=== PATIENT | male | born 1965 | race Caucasian/White ===

== ENCOUNTER 2020-03-03 11:26 | Emergency (ER) | payer OTHER ==
--- OUTSIDE RECORDS SUMMARY | 2020-03-03 11:28 | XMS REPORT | Continuity of Care Document ---
:1965 Author Organization [facility] t Address [address] [place] [address] Care Team Providers Name Role Phone ATTAR Attending Clinician Unavailable Problems This patient has no known problems. Allergies, Adverse Reactions, Alerts This patient has no known allergies or adverse reactions. Social History Social Habit Start Date Stop Date Quantity Comments Source Sex Assigned At [place] [facility] Medications This patient has no known medications. Procedures This patient has no known procedures. Plan of Care Planned Activity Planned Date Details Comments Source Future Scheduled 2020-04-05 INFLUENZA VACCINE [place] [facility] 00:00:00 [code = INFLUENZA VACCINE] Future Scheduled 2014 COLONOSCOPY SCREENING [place] [facility] 00:00:00 [code = COLONOSCOPY SCREENING] Future Scheduled 2014 SHINGLES VACCINES [place] [facility] 00:00:00 (#1) [code = SHINGLES VACCINES (#1)] Encounters Start End Encounter Admission Attending Care Care Encounter Source Date/Time Date/Time Type Type Clinicians Facility Department ID 2019-12-28 2019-12-28 Outpatient ATTAR, [facility] [id number] [address] 00:00:00 00:00:00 [id number] Results This patient has no known results.
--- OUTSIDE RECORDS SUMMARY | 2020-03-03 11:28 | XMS REPORT | Clinical Summary ---
:1965 Author Organization [facility] Address [address] [place] [address] Care Team Providers Name Role Phone Unavailable Primary Care Provider Unavailable Allergies Not on File Medications Not on file Active Problems Not on file Encounters Date Type Specialty Care Team Description 12/28/2019 Travel after 03/03/2019 Social History Tobacco Use Types Packs/Day Years Used Date Never Assessed Sex Assigned at Date Recorded Not on file Job Start Date Occupation Industry Not on file Not on file Not on file Travel History Travel Start Travel End No recent travel history available. Last Filed Vital Signs Not on file Plan of Treatment Health Maintenance Due Date Last Done Comments COLONOSCOPY SCREENING 2014 SHINGLES VACCINES (#1) 2014 INFLUENZA VACCINE 04/05/2020 Results Not on fileafter 03/03/2019 Advance Directives For more information, please contact: [phone] Type Date Recorded Patient Development Specialist Explanati on Advance Directives, Living Will and Medical Power of Shift Lab Technician
--- NOTE | 2020-03-03 12:02 | RAD REPORT ---
EXAM DESCRIPTION: RAD - Chest Single View - 03/03/2020 11:53 am CLINICAL HISTORY: CONGESTION COMPARISON: April 2012 TECHNIQUE: AP portable chest image was obtained 03/03/2020 11:53 am . FINDINGS: Exam is limited due to portable technique, shallow inspiration and large body habitus. No peripheral mass or consolidation. No failure or volume overload identifiable. Heart and vasculatur e are normal. No measurable pleural effusion and no pneumothorax. No acute bony abnormality seen. No acute aortic findings suspected. IMPRESSION: Limited portable examination without acute cardiopulmonary finding.
[2020-03-03 12:35] LABS: Absolute Lymphocytes (CBC) 1.6 K/uL (0.7-4.9); Basophils % 0.4 % (0-1.3); Hematocrit 48.9 % (39.6-49.0); Lymphocytes % 20.5 % (15.3-44.8); RBC Red Blood Cell Count 5.48 M/uL (4.33-5.43)
[2020-03-03 12:42] LABS: Protime INR 0.94
[2020-03-03 12:59] LABS: ALT/SGPT 76 U/L (12-78); AST/SGOT 25 U/L (15-37); Albumin 3.6 g/dL (3.4-5.0); Alkaline Phosphatase 53 U/L (45-117); BUN Blood Urea Nitrogen 15 mg/dL (7-18); Bicarbonate 25 mmol/L (21-32); Bilirubin Direct < 0.1 mg/dL (0-0.2); Bilirubin Total 0.3 mg/dL (0.2-1.0); Glucose Level 97 mg/dL (74-106); Magnesium 2.2 mg/dL (1.8-2.4); NT PRO-BNP 48 pg/mL (<125); Potassium 4.3 mmol/L (3.5-5.1); Protein, Total 7.6 g/dL (6.4-8.2); Sodium Level 139 mmol/L (136-145); Troponin (Emerg Dept Use Only) < 0.02 ng/mL (0.0-0.045)
--- NOTE | 2020-03-03 13:18 | ER ---
Nurse's Notes [facility] Name: Paulo Delgado Age: 54 yrs Sex: Male : 1965 Arrival Date: 03/03/2020 Time: : Bed 4 Private MD: Diagnosis: Presentation: 03/03 11:37 Chief complaint: Patient states: coughing up blood since 0400 this morning. Pt reports ss he has had two episodes. Denies fever. Reports mild SOB. Coronavirus screen: Client denies travel out of the [place] in the last 14 days. shortness of breath, Client presents with at least one sign or symptom that may indicate coronavirus-19. Standard/surgical mask placed on the client. Ebola Screen: Patient denies exposure to infectious person. Patient denies travel to an Ebola-affected area in the 21 days before illness onset. Initial Sepsis Screen: Does the patient meet any 2 criteria? No. Patient's initial sepsis screen is negative. Does the patient have a suspected source of infection? No. Patient's initial sepsis screen is negative. Risk Assessment: Do you want to hurt yourself or someone else? Patient reports no desire to harm self or others. Onset of symptoms was March 03, 2020. 11:37 Method Of Arrival: Ambulatory ss 11:37 Acuity: UDAY 2 ss Historical: - Allergies: 11:42 No Known Allergies; ss - PMHx: 11:42 Hypertension; ss - Immunization history:: Adult Immunizations up to date. - Social history:: Smoking status: Patient denies any tobacco usage or history of. Patient/guardian denies using alcohol, street drugs, The patient lives with family. - Family history:: not pertinent. Screenin:58 Abuse screen: Denies threats or abuse. Nutritional screening: No deficits noted. em Tuberculosis screening: No symptoms or risk factors identified. Fall Risk None identified. Assessment: 11:50 General: Appears in no apparent distress. uncomfortable, obese, Behavior is em cooperative, appropriate for age, anxious, Denies fever. Pain: Denies pain. Neuro: Level of Consciousness is awake, alert, obeys commands, Oriented to person, place, time, situation, Appropriate for age. Cardiovascular: Capillary refill < 3 seconds Patient's skin is warm and dry. Rhythm is sinus rhythm. Respiratory: Airway is patent Respiratory effort is even, unlabored, Respiratory pattern is regular, symmetrical, Sputum is bloody. GI: Abdomen is round distended, Reports bloating, gaseousness. Derm: Skin is intact, is healthy with good turgor, Skin is pink, warm \T\ dry. Musculoskeletal: Capillary refill < 3 seconds, Range of motion: intact in all extremities. 13:10 Reassessment: pt coughed/vomited up about 20-30 cc bright red blood, Dr. Ontiveros em notified, received order for 2nd IV and T\T\S, will be moved to bigger room, SPO2 % dropped to 90%, placed on NC at 2 LPM. 13:51 General: Appears in no apparent distress. comfortable, obese, well developed, Behavior sv is calm, cooperative, appropriate for age. Pain: Denies pain. Neuro: Level of Consciousness is awake, alert, obeys commands, Oriented to person, place, time, situation, Appropriate for age Speech is normal. Respiratory: Airway is patent Respiratory effort is even, unlabored, Respiratory pattern is regular, symmetrical. GI: Abdomen is obese, Reports bloating, gaseousness. Derm: Skin is intact, Skin is pink, warm \T\ dry. Musculoskeletal: Range of motion: intact in all extremities. 14:07 Reassessment: Went to have the pt sign the MOT to transfer him to [facility]. Pt stated sv before signing the paperwork he would like to speak with someone regarding the cost of the ambulance ride over there. Pt stated that he would rather feed his family than pay a lot of money for the transfer. 15:11 Reassessment: Patient appears in no apparent distress at this time. No changes from sv previously documented assessment. Patient and/or family updated on plan of care and expected duration. Pain level reassessed. Patient is alert, oriented x 3, equal unlabored respirations, skin warm/dry/pink. Report given to [facility]. 15:20 Reassessment: Pt wanting to speak with the MD prior to going with the ambulance sv regarding results. 15:25 Reassessment: Dr Ontiveros to speak with the pt at bedside. sv Vital Signs: 11:37 BP 174 / 126; Pulse 86; Resp 18; Temp 97.9(TE); Pulse Ox 96% on R/A; Weight 131.54 kg; ss Height 6 ft. 1 in. (185.42 cm); Pain 0/10; 11:52 BP 155 / 113; Pulse 74; Resp 18; Pulse Ox 96% on R/A; em 13:53 BP 156 / 105; Pulse 74; Resp 17; Pulse Ox 95% on 2 lpm NC; sv 11:37 Body Mass Index 38.26 (131.54 kg, 185.42 cm) ED Course: 11:29 Patient arrived in ED. mr 11:32 Dylan Ontiveros MD is Attending Physician. ma2 11:33 Dale Elizabeth, RN is Primary Nurse. em 11:37 Arm band placed on left wrist. ss 11:41 Triage completed. ss 11:50 EKG done, by ED staff, reviewed by Dylan Ontiveros MD. em 11:53 XRAY Chest (1 view) In Process Unspecified. EDMS 11:58 Patient has correct armband on for positive identification. Placed in gown. Bed in low em position. Call light in reach. Side rails up X2. quality assurance monitor body on. Pulse ox on. NIBP on. 12:00 Initial lab(s) drawn, by or, sent to lab. Inserted saline lock: 20 gauge in right em antecubital area, using aseptic technique. Blood collected. 13:18 T\T\S collected, blood band applied to patient. Inserted saline lock: 20 gauge in left em forearm, using aseptic technique. Blood collected. 13:21 initiated a transfer with Pauloprincess Courtney from the [facility]. eb 13:[address] Rodriguez the GI fashion director party plan sales for [facility] with Dr. Kapadia for patient eb transfer consultation. 13:[address] Lui the hospitalist fashion director party plan sales for [facility] with Dr. Ontiveros for eb patient transfer consultation. 13:48 administrative approval given by Paulo Courtney/ patient has been accepted to [facility] bed 754/ Dr. Lui has accepted the patient in transfer/ report to be called to [phone]. 13:56 Primary Nurse role handed off by Dale Elizabeth, RN sv 13:56 Oneida Conklin, JOSE is Primary Nurse. sv 14:02 No provider procedures requiring assistance completed. sv 14:24 CT Chest For PE Angio In Process Unspecified. EDMS 15:11 Patient transferred, IV remains in place. intact, to the left FA and right AC. sv 16:01 IV discontinued, intact, bleeding controlled, No redness/swelling at site. Pressure sv dressing applied, to the left forearm and right AC. Administered Medications: 13:27 Drug: Pantoprazole 80 mg Route: IVP; Site: left forearm; em 13:51 Follow up: Response: No adverse reaction sv 13:27 Drug: NS 0.9% 1000 ml Route: IV; Rate: 1 bolus; Site: left forearm; em 14:30 Follow up: Response: No adverse reaction; IV Status: Completed infusion; IV Intake: sv 1000ml 13:51 Drug: Pantoprazole 8 mg/hr Route: IV; Rate: 25 ml/hr; Site: left forearm; sv Intake: 14:30 IV: 1000ml; Total: 1000ml. sv Outcome: 13:17 ER care complete, transfer ordered by MD. wolfe 14:03 Transferred by ground EMS to [facility], Transfer form completed. sv Note: Report called to Lucy at [facility] 14:03 Condition: stable 14:03 Instructed on the need for transfer. 16:00 AMA AMA form signed sv 16:02 Patient left the ED. sv Signatures: Dispatcher [employer] Oneida Petty, RN Chelo Greene Edgar, RN RN em Smirch, Shelby, RN RN ss Alzahri, Mohammad, MD MD ma Marta Aguilera Corrections: (The following items were deleted from the chart) 11:42 11:37 Acuity: UDAY 3 ss ss 13:36 11:50 Respiratory: Airway is patent Respiratory effort is even, unlabored, Respiratory em pattern is regular, symmetrical, em
--- NOTE | 2020-03-03 13:18 | EDPHYS ---
Physician Documentation [facility] Name: Paulo Delgado Age: 54 yrs Sex: Male : 1965 Arrival Date: 03/03/2020 Time: 11:29 Bed 4 Private MD: ED Physician Dylan Ontiveros HPI: 03/03 12:19 This 54 yrs old Male presents to ER via Ambulatory with complaints of ma2 Coughing up blood. 12:19 This 54 yrs old Male presents to ER via Ambulatory with complaints of ma2 spitting up blood. 12:19 The patient presents to the emergency department vomiting blood. Onset: The ma2 symptoms/episode began/occurred gradually, 2 day(s) ago. Associated signs and symptoms: Pertinent positives: Pertinent negatives: chest pain, dizziness at rest, fever. Severity of symptoms: At their worst the symptoms were mild in the emergency department the symptoms are unchanged. The patient has not experienced similar symptoms in the past. Historical: - Allergies: 11:42 No Known Allergies; ss - PMHx: 11:42 Hypertension; ss - Immunization history:: Adult Immunizations up to date. - Social history:: Smoking status: Patient denies any tobacco usage or history of. Patient/guardian denies using alcohol, street drugs, The patient lives with family. - Family history:: not pertinent. ROS: 12:19 Constitutional: Negative for fever, chills, and weight loss. ma2 12:19 All other systems are negative. Exam: 12:19 Constitutional: This is a well developed, well nourished patient who is awake, alert, ma2 and in no acute distress. Head/Face: Normocephalic, atraumatic. Eyes: Pupils equal round and reactive to light, extra-ocular motions intact. Lids and lashes normal. Conjunctiva and sclera are non-icteric and not injected. Cornea within normal limits. Periorbital areas with no swelling, redness, or edema. ENT: Nares patent. No nasal discharge, no septal abnormalities noted. Tympanic membranes are normal and external auditory canals are clear. Oropharynx with no redness, swelling, or masses, exudates, or evidence of obstruction, uvula midline. Mucous membranes moist. Neck: Trachea midline, no thyromegaly or masses palpated, and no cervical lymphadenopathy. Supple, full range of motion without nuchal rigidity, or vertebral point tenderness. No Meningismus. Chest/axilla: Normal chest wall appearance and motion. Nontender with no deformity. No lesions are appreciated. Cardiovascular: Regular rate and rhythm with a normal S1 and S2. No gallops, murmurs, or rubs. Normal PMI, no JVD. No pulse deficits. Respiratory: Lungs have equal breath sounds bilaterally, clear to auscultation and percussion. No rales, rhonchi or wheezes noted. No increased work of breathing, no retractions or nasal flaring. Abdomen/GI: Soft, non-tender, with normal bowel sounds. No distension or tympany. No guarding or rebound. No evidence of tenderness throughout. Skin: Warm, dry with normal turgor. Normal color with no rashes, no lesions, and no evidence of cellulitis. MS/ Extremity: Pulses equal, no cyanosis. Neurovascular intact. Full, normal range of motion. Neuro: Awake and alert, GCS 15, oriented to person, place, time, and situation. Cranial nerves II-XII grossly intact. Motor strength 5/5 in all extremities. Sensory grossly intact. Cerebellar exam normal. Normal gait. Vital Signs: 11:37 BP 174 / 126; Pulse 86; Resp 18; Temp 97.9(TE); Pulse Ox 96% on R/A; Weight 131.54 kg; ss Height 6 ft. 1 in. (185.42 cm); Pain 0/10; 11:52 BP 155 / 113; Pulse 74; Resp 18; Pulse Ox 96% on R/A; em 13:53 BP 156 / 105; Pulse 74; Resp 17; Pulse Ox 95% on 2 lpm NC; sv 11:37 Body Mass Index 38.26 (131.54 kg, 185.42 cm) ss MDM: 11:32 Patient medically screened. ma2 12:19 Differential diagnosis: gastritis, varices, vs PE. ma2 13:15 Data reviewed: vital signs, nurses notes. Counseling: I had a detailed discussion with ma2 the patient and/or guardian regarding: the historical points, exam findings, and any diagnostic results supporting the discharge/admit diagnosis, the presence of at least one elevated blood pressure reading (>120/80) during this emergency department visit, the need for outpatient follow up. Response to treatment: There is no appreciated change of the patient's symptoms at this time. ED course: patient had another episode of hematemesis in the er, bright red, he will need to be transferred to [facility] for UGI as no GI service available in our hospital. 13:45 ED course: accepted by dr. mon[facility]ada. [facility] 15:38 ED course: patient has large amount of hematemesis in ER. he is sitting up.. i offered [facility] transfer for UGIB and he was agreeble on that, however when ems arrived to pick him up he changed his mind and want to go home and see dr. Arzola on Thursday. I explained that this is dangerous as he is now actively bleeding and gi bleed are not easy to control as they are at non compressible sites. I explained risk of bleeding and and uncontrollable gi bleeding.. he understands risks. 03/03 11:34 Order name: Basic Metabolic Panel; Complete Time: 13:09 [facility] 03/03 11:34 Order name: CBC with Diff; Complete Time: 13: [facility] 03/03 11:34 Order name: LFT's; Complete Time: 13: [facility] 03/03 11:34 Order name: Magnesium; Complete Time: 13: [facility] 03/03 11:34 Order name: NT PRO-BNP; Complete Time: 13: [facility] 03/03 11:34 Order name: PT-INR; Complete Time: 13: [facility] 03/03 11:34 Order name: Troponin (emerg Dept Use Only); Complete Time: 13: [facility] 03/03 11:34 Order name: XRAY Chest (1 view); Complete Time: 12:15 [facility] 03/03 12:15 Order name: CT Chest For PE Angio; Complete Time: 15:26 [facility] 03/03 13:14 Order name: Type And Screen; Complete Time: 15:26 em 03/03 11:34 Order name: EKG; Complete Time: 11:35 [facility] 03/03 11:34 Order name: Cardiac monitoring; Complete Time: 11:43 [facility] 03/03 11:34 Order name: EKG - Nurse/Tech; Complete Time: 11:58 [facility] 03/03 11:34 Order name: IV Saline Lock; Complete Time: 12:20 [facility] 03/03 11:34 Order name: Labs collected and sent; Complete Time: 11:43 nj2 03/03 11:34 Order name: O2 Per Protocol; Complete Time: 11:43 ma2 03/03 11:34 Order name: O2 Sat Monitoring; Complete Time: :43 ma2 Administered Medications: 13:27 Drug: Pantoprazole 80 mg Route: IVP; Site: left forearm; em 13:51 Follow up: Response: No adverse reaction sv 13:27 Drug: NS 0.9% 1000 ml Route: IV; Rate: 1 bolus; Site: left forearm; em 14:30 Follow up: Response: No adverse reaction; IV Status: Completed infusion; IV Intake: sv 1000ml 13:51 Drug: Pantoprazole 8 mg/hr Route: IV; Rate: 25 ml/hr; Site: left forearm; sv Disposition: 03/03/20 16:02 Patient has left against medical advice. - Patients states they are going to Home. - Condition is Undetermined. Signatures: Dispatcher [employer] [facility] Oneida Conklin RN RN Dale Elizabeth RN RN Tania Galeas RN RN Dylan Ontiveros MD MD ma2 Corrections: (The following items were deleted from the chart) 13:32 13:17 03/03/2020 13:[address] [facility]. ma2 Diagnosis is Gastrointestinal hemorrhage, unspecified. Reason for transfer: Higher level of care. Accepting physician is OS. Condition is Stable. Problem is new. Symptoms are unchanged. ma2 14:14 13:15 TYPE AND SCREEN+[id number].LAB.BRZ ordered. [facility] 15:44 13:32 03/03/2020 13:[address] [facility]. ma2 Diagnosis is Gastrointestinal hemorrhage, unspecified. Reason for transfer: Higher level of care. Accepting physician is dr. eduardo. Condition is Stable. Problem is new. Symptoms are unchanged. ma2 16:01 15:44 03/03/2020 13:[address] [facility]. sv Diagnosis is Gastrointestinal hemorrhage, unspecified; Pneumonia due to other specified bacteria. Reason for transfer: Higher level of care. Accepting physician is dr. eduardo. Condition is Stable. Problem is new. Symptoms are unchanged. ma2
[2020-03-03] MEDS ORDERED: PANTOPRAZOLE 40 MG INJ ONE (13:32)
[2020-03-03] MEDS ORDERED: NA CHLORIDE 0.9% 1,000 ML ONE (13:33)
[2020-03-03] MEDS ORDERED: PANTOPRAZOLE INJ 80 MG in NA CHLORIDE 0.9% 250 ML IV SCH ×4 (14:00)
--- NOTE | 2020-03-03 14:33 | RAD REPORT ---
EXAM DESCRIPTION: CT - Chest For Pe Angio - 03/03/2020 2:24 pm CLINICAL HISTORY: hemoptysis;Congestion COMPARISON: CTANGIO CHEST FOR PE dated 04/01/2012; Chest Single View dated 03/03/2020 TECHNIQUE: Dynamically enhanced 3 mm thick images of the chest were obtained during administration o f approximately 150mL Isovue 370 IV contrast. Coronal and oblique MIP reconstruction images were gene rated and reviewed. Exam utilizes a protocol to evaluate the pulmonary arterial tree. All CT scans are performed using dose optimization technique as appropriate and may include automated exposure control or mA/KV adjustment according to patient size. FINDINGS: No central pulmonary emboli to the lobar level. No segmental branch emboli suspected. The more peripheral branches are degraded by motion. Far peripheral branch contrast bolus was not optimal . Probability of pulmonary embolic disease is felt to be low. The aorta as imaged shows no acute or suspicious finding. No pericardial thickening or effusion. Minimal airspace opacities present in the right apex. No other mass or consolidation of the upper emerald g acin. Minimal ground-glass opacification present at the right lung base. No endobronchial lesions seen. No pleural effusion or pleural thickening. No mediastinal or hilar suspicious masses. No chest wall masses or abnormal axillary lymphadenopathy. IMPRESSION: No pulmonary emboli identified. Far peripheral branch assessment is limited due to motio n and contrast density. Probability of a far peripheral branch embolus is felt to be low. Airspace opacification in the right apex and right base. Mild pneumonia changes favored.
== END 2020-03-03 16:02 | disposition left against medical advice (07) ==
LOC: ER 11:26
DX: R04.2 Hemoptysis (principal); I10 Essential (primary) hypertension
CPT/HCPCS: 96361; 93005; 85025; 80048; 36415; 86900; 83735; 86850; 85610; 86901; 80076; 84484; 83880; 71275; 71045; 96374; 99285; Q9967; C9113; J7050; J7030